=== PATIENT | female | born 1980 | race Caucasian/White ===

== ENCOUNTER → 2017-02-14 | Outpatient (CLI) | payer OTHER ==
[~2017-02-14] MED LIST: BUTA1CAP17 PO; FERR1TAB23 PO; PANT40TA PO; SINCALIDE INJ 2.4 MCG in SODIUM CHLORIDE 0.9% 100ML 100 ML IV ONE
--- NOTE | 2017-02-14 12:29 | DIAGNOSTIC IMAGING REPORT ---
NUCLEAR MEDICINE HEPATOBILIARY SCAN WITH GALLBLADDER EJECTION FRACTION CLINICAL HISTORY: Gallbladder disease. COMPARISON: Right upper quadrant ultrasound January 18, 2016. TECHNIQUE: 5.4 mCi of technetium 99m Choletec IV was injected at 10:30 AM on February 14, 2017. Immediately following injection, imaging of the abdomen was carried out for 60 minutes in the anterior projection. At this time, 2.4 mcg of Sincalide was injected IV as per protocol. Imaging was performed for an additional 45 minutes to estimate a gallbladder ejection fraction. FINDINGS: Hepatic uptake of radiotracer is prompt and homogeneous. Activity is first identified within the common bile duct and gallbladder at 15 minutes. Small bowel activity is first noted at 30 minutes. Gallbladder emptying was normal following injection of sincalide with an ejection fraction estimated at 87%. Normal is greater than 30-35%. IMPRESSION: 1. Normal hepatobiliary scan. No evidence of acute or chronic cholecystitis. 2. Normal gallbladder ejection fraction of 87%. Electronically signed by: Sathish Alexander M.D. 02/14/2017 12:28 PM Dictated Date/Time: 02/14/2017 12:27 PM
== END | disposition home or self-care (01) ==
LOC: C.NUCL 10:11
PROVIDERS: ATTEND Physician Assistant
DX: K82.9 Disease of gallbladder, unspecified (principal)